=== PATIENT | male | born 1980 | race Caucasian/White ===

== ENCOUNTER 2017-02-04 06:59 | Inpatient (IN) | payer OTHER ==
[~2017-02-04] VITALS: Ht 175.3 cm; Wt 113.4 kg
[2017-02-18] MEDS ORDERED: OXYC1TAB9 PO (08:45)
[2017-02-18] MEDS ORDERED: INTESTINEX PO (08:46)
== END 2017-02-18 16:52 | disposition home or self-care (01) | DRG 331 ==
LOC: O/R 02-14 08:32 → SURH 02-14 08:32 → SURG 02-14 08:45 → SURH 02-14 15:56 → SURG 02-14 17:45 → SURH 02-18 16:52
PROVIDERS: Surgery
PROC: 0DBP4ZZ Excision of Rectum, Percutaneous Endoscopic Approach (ICD-10-PCS; 2017-02-14)
PROC: 07TC4ZZ Resection of Pelvis Lymphatic, Percutaneous Endoscopic Approach (ICD-10-PCS; 2017-02-14)
PROC: 0D1B4Z4 Bypass Ileum to Cutaneous, Percutaneous Endoscopic Approach (ICD-10-PCS; 2017-02-14)
PROC: 0DJD8ZZ Inspection of Lower Intestinal Tract, Via Natural or Artificial Opening Endoscopic (ICD-10-PCS; 2017-02-14)
PROC: 0DTN4ZZ Resection of Sigmoid Colon, Percutaneous Endoscopic Approach (ICD-10-PCS; principal; 2017-02-14 17:45)
DX: C19 Malignant neoplasm of rectosigmoid junction (principal)

== ENCOUNTER → 2017-05-04 | Outpatient (CLI) | payer OTHER ==
[~2017-05-04] MED LIST: INTESTINEX PO; OXYC1TAB9 PO
== END | disposition home or self-care (01) ==
LOC: RX STUDY 08:44
DX: C20 Malignant neoplasm of rectum (principal); R59.0 Localized enlarged lymph nodes

== ENCOUNTER 2018-04-06 14:15 | Inpatient (IN) | payer OTHER ==
[~2018-04-06] VITALS: Ht 175.3 cm; Wt 117.9 kg
[2018-04-15] MEDS ORDERED: OXYC1TAB9 PO (11:04)
[2018-04-15] MEDS ORDERED: INTESTINEX680 M1 PO (11:04)
== END 2018-04-15 12:06 | disposition home or self-care (01) | DRG 330 ==
LOC: EDSTATUS 14:15 → ADM 14:15 → SURH 14:15 → O/R 04-10 06:58 → SURH 04-10 08:45
PROVIDERS: ADMIT Surgery
PROC: 0DQB4ZZ Repair Ileum, Percutaneous Endoscopic Approach (ICD-10-PCS; principal; 2018-04-10 08:45)
DX: Z43.2 Encounter for attention to ileostomy (principal); C20 Malignant neoplasm of rectum; K66.0 Peritoneal adhesions (postprocedural) (postinfection)

== ENCOUNTER 2018-10-10 06:45 | Day surgery (SDC) | payer OTHER ==
[~2018-10-10 06:45] MED LIST changes: +INTESTINEX680 M1 PO
== END 2018-10-10 10:20 | disposition home or self-care (01) ==
LOC: AMB-ENDOS 06:45
DX: C20 Malignant neoplasm of rectum (principal)